=== PATIENT | male | born 1965 | race Caucasian/White ===

== ENCOUNTER 2018-08-18 23:45 | Inpatient (IN) | payer OTHER ==
--- NOTE | 2018-08-19 00:14 | CT ---
PRELIMINARY REPORT/[facility]/EMERGENTY AFTER-HOURS PROCEDURE CT Head Without Contrast EXAM DATE/TIME: 08/18/2018 11:51 PM CLINICAL HISTORY: 53 years old, male; Signs and symptoms; Weakness, extremity; Right; Patient HX: Lsn 1800. RT sided we akness. Vision loss. HTN TECHNIQUE: Axial computed tomography images of the head/brain without contrast. STROKE PROTOCOL was implemented. COMPARISON: No relevant prior studies available. FINDINGS: Brain: No intracrainal hemorrhage. No midline shift. Ill-defined hypodensity in the posterior inferio r right parietal lobe adjacent to the inferior right occipital horn. Ventricles: No ventriculomegaly. Bones/joints: Unremarkable. No acute fracture. Sinuses: Visualized sinuses are unremarkable. No acute sinusitis. Mastoid air cells: Visualized mastoid air cells are unremarkable. No mastoid effusion. Soft tissues: Unremarkable. IMPRESSION: No acute intracranial hemorrhage. Ill-defined area of hypodensity in the inferior right frontal lobe which is indeterminate. This does not have a typical appearance of acute ischemia. Further workup bas ed on clinical symptoms. ASSESSMENT: ASPECTS ([place] Stroke Program Early CT Score) is 10. CRITICAL RESULT: The study was discussed on the telephone with DOMINICK Spears on 08/19/2018 12:25 AM MACHINIST CLASS B. The results were understood and acknowledged. HEAD CT WITHOUT CONTRAST 08/18/18 HISTORY: Level I stroke. Last seen normal at 1800 hours. Right sided weakness. Vision loss. COMPARISON: None. FINDINGS: No parenchymal hemorrhage. No extra-axial hematoma. No midline shift. Basilar cisterns are patent. Brain volume, age appropriate. Cortical mccormack-white matter differentiatio n is preserved. Ventricles and sulci are patent and symmetric. Hypoattenuation involving the anterior right centrum semiovale likely due to remote lacunar infarct o f the white matter. There is subtle hyperdensity involving the terminus of the left internal carotid artery and proximal left M1 segment. Similar, the left hyperdense attenuation may be present in the right M1 segment and the visualized basilar artery. Given patient's symptomatology, CT angiogram is recommended. Calvariu m is intact. Adequate aeration of the sinuses and mastoid air cells. IMPRESSION: 1. No acute intracranial process. 2. Questionable thrombus with hyperdensity in the left M1 segment and left internal carotid raudel ry terminus. CT angiogram of the head and neck are recommended. Results of the study discussed with Dr. Escalera 08/18/18 at 11:57 p.m. Code CR POS: TOSIN
[2018-08-19 00:24] LABS: #Basophils 0.1 thou/uL (0.0-0.2); #Eosinphils 0.1 thou/uL (0.0-0.7); #Lymphocytes 1.4 thou/uL (1.20-3.40); #Monocytes 0.6 thou/uL (0.11-0.59); #Neutrophils 3.8 thou/uL (1.40-6.50); %Lymphocytes 23.5 % (21.0-51.0); %Monocytes 9.5 % (0.0-10.0); %Neutrophils 64.1 % (42.0-75.0); Hemoglobin 14.8 g/dL (14.0-18.0); Mean Corpuscular HGB CONC 33.5 g/dL (32.0-36.0); Mean Corpuscular Hemoglobin 32.5 pg (27.0-31.0); Mean Corpuscular Volume 96.9 fL (78.0-98.0); Platelet Count 183 thou/uL (130-400); RBC Distribution Width 12.6 % (11.5-14.5); Red Blood Cell (RBC) Count 4.55 mill/uL (4.70-6.10); White Blood Cell (WBC) Count 5.9 thou/uL (4.8-10.8)
[2018-08-19 00:45] LABS: ALT (SGPT) 19 U/L (8-55); AST (SGOT) 22 U/L (5-34); Alkaline Phosphatase 70 U/L (40-150); Anion Gap 14 mmol/L (10-20); BUN (Urea Nitrogen) 17 mg/dL (8.4-25.7); Bilirubin, Total 0.4 mg/dL (0.2-1.2); Calc. Creatinine Clearance 0 mL/min (70-130); Calcium 9.2 mg/dL (7.8-10.44); Carbon Dioxide 25 mmol/L (22-29); Chloride 101 mmol/L (98-107); Estimated GFR-MDRD 56; Globulin 3.6 g/dL (2.4-3.5); Glucose 137 mg/dL (70-105); Potassium 4.2 mmol/L (3.5-5.1); Protein, Total 7.6 g/dL (6.0-8.3); Sodium 136 mmol/L (136-145)
[2018-08-19 01:40] LABS: INR-International Normal Ratio 1.2; PTT 28.8 SEC (22.9-36.1); Prothrombin Time 15.4 SEC (12.0-14.7)
[2018-08-19 03:57] LABS: Troponin I 0.046 ng/mL (< 0.028)
[2018-08-19 04:30] VITALS: BMI 43.3
[2018-08-19] MEDS ORDERED: Acetaminophen 325 MG TAB PO PRN (04:42)
[2018-08-19] MEDS ORDERED: Ondansetron PF 4 MG/2 ML Vial IVP PRN ×2 (04:42→07:09)
[2018-08-19] MEDS ORDERED: Ondansetron ODT 4 MG TAB SL PRN (04:42)
[2018-08-19 06:49] LABS: Troponin I 0.057 ng/mL (< 0.028)
[2018-08-19] MEDS ORDERED: Cepastat Lozenges 1 LOZ PO PRN (07:09)
[2018-08-19] MEDS ORDERED: Loperamide HCl 2 MG CAP PO PRN (07:09)
[2018-08-19] MEDS ORDERED: Artificial Tears 18 DROP/0.9 ML EA EYE PRN (07:09)
[2018-08-19] MEDS ORDERED: Sodium Chloride 0.65% Nasal 44 ML BOT EA NARE PRN (07:09)
[2018-08-19] MEDS ORDERED: Eucerin (Mineral Oil/Petrolatum,White) 30 gm Jar TOP PRN (07:09)
[2018-08-19] MEDS ORDERED: Calcium Carbonate 500 MG ChewTAB PO PRN (07:09)
[2018-08-19] MEDS ORDERED: Nitroglycerin 0.4 MG TAB (25 Tab Bottle) SL PRN (07:09)
[2018-08-19] MEDS ORDERED: Senokot S 8.6-50 MG TAB PO PRN (07:09)
[2018-08-19] MEDS ORDERED: Bisacodyl 10 MG SUPP PR PRN (07:09)
[2018-08-19] MEDS ORDERED: hydrALAZINE 20 MG/ML VIAL SLOW IVP PRN (07:09)
[2018-08-19] MEDS ORDERED: Labetalol HCl 100 MG/20 ML VIAL SLOW IVP PRN (07:09)
[2018-08-19] MEDS ORDERED: Bisacodyl 5 MG TAB PO PRN (07:09)
[2018-08-19] MEDS ORDERED: Ondansetron ODT 4 MG TAB PO PRN (07:09)
[2018-08-19] MEDS ORDERED: Zolpidem Tartrate 5 MG TAB PO PRN (07:09)
[2018-08-19] MEDS ORDERED: Diabetic Tussin 200 MG/10 ML UDCUP PO PRN (07:09)
--- NOTE | 2018-08-19 08:04 | CT ---
PRELIMINARY REPORT/[facility]/EMERGENTY AFTER-HOURS PROCEDURE CT Angiography Head Without And With Contrast EXAM DATE/TIME: 08/19/2018 1:33 AM CLINICAL HISTORY: 53 years old, male; Signs and symptoms; Numbness and visual disturbance; Type not specified; Patient HX: M53 presents to ed via ems from [facility] unit with C/O r sided weakness onset 1800 associated with visual field disturbance on r side which PT describes as more blurry than normal as well as and chest pain. Per ems, PT ekg en route showed afib. Ems denies any facial droop or slurred speech. TECHNIQUE: Axial computed tomographic angiography images of the head without and with intravenous contrast using CT angiography protocol. MIP reconstructed images were created and reviewed. STROKE PROTOCOL was imp lemented. COMPARISON: CT Brain WO Con 08/18/2018 11:51 PM FINDINGS: Right internal carotid artery: Unremarkable. Intracranial segment is patent with no significant steno sis. No aneurysm. Right anterior cerebral artery: Unremarkable. No occlusion or significant stenosis. No aneurysm. Right middle cerebral artery: Unremarkable. No occlusion or significant stenosis. No aneurysm. Right posterior cerebral artery: Unremarkable. No occlusion or significant stenosis. No aneurysm. Right vertebral artery: Unremarkable. No occlusion or significant stenosis. No aneurysm. Left internal carotid artery: Unremarkable. Intracranial segment is patent with no significant stenos is. No aneurysm. Left anterior cerebral artery: Unremarkable. No occlusion or significant stenosis. No aneurysm. Left middle cerebral artery: Unremarkable. No occlusion or significant stenosis. No aneurysm. Left posterior cerebral artery: Unremarkable. No occlusion or significant stenosis. No aneurysm. Left vertebral artery: Unremarkable. No occlusion or significant stenosis. No aneurysm. Basilar artery: Unremarkable. No occlusion or significant stenosis. No aneurysm. HEAD: Brain: Unremarkable. No hemorrhage. No significant white matter disease. No edema. Ventricles: Normal. No ventriculomegaly. Bones/joints: Unremarkable. No acute fracture. Sinuses: Visualized sinuses are normal. No fluid levels. Mastoid air cells: Visualized mastoids are normal. No mastoid effusion. Soft tissues: Unremarkable. IMPRESSION: No acute findings. ASSESSMENT: ASPECTS ([place] Stroke Program Early CT Score) is 10. CT Angiography Neck With Contrast EXAM DATE/TIME: 08/19/2018 1:33 AM CLINICAL HISTORY: 53 years old, male; Signs and symptoms; Numbness and visual disturbance; Type not specified; Patient HX: M53 presents to ed via ems from [facility] unit with C/O r sided weakness onset 1800 associated with visual field disturbance on r side which PT describes as more blurry than normal as well as and chest pain. Per ems, PT ekg en route showed afib. Ems denies any facial droop or slurred speech. TECHNIQUE: Axial computed tomographic angiography images of the neck with intravenous contrast using CT angiogra phy protocol. MIP reconstructed images were created and reviewed. COMPARISON: CT Brain WO Con 08/18/2018 11:51 PM FINDINGS: VASCULATURE: Right common carotid artery: Normal. No significant stenosis. No dissection or occlusion. Right internal carotid artery: Normal. Extracranial segment is patent with no significant stenosis. No dissection or occlusion. Right external carotid artery: Normal. No occlusion or significant stenosis. Right vertebral artery: Normal. No significant stenosis. No dissection or occlusion. Left common carotid artery: Normal. No significant stenosis. No dissection or occlusion. Left internal carotid artery: Normal. Extracranial segment is patent with no significant stenosis. No dissection or occlusion. Left external carotid artery: Normal. No occlusion or significant stenosis. Left vertebral artery: Normal. No significant stenosis. No dissection or occlusion. Bovine aortic arc h NECK: Bones/joints: No acute fracture. Soft tissues: Normal. No significant soft tissue swelling. IMPRESSION: No acute findings. COMMENT: Reference per NASCET criteria for degree of stenosis: Mild: less than 50% stenosis. Moderate: 50-69% stenosis. Severe: 70-94% stenosis. Near occlusion: 95-99% stenosis. Thank you for allowing us to participate in the care of your patient. Dictated and Authenticated by: Michael Pike MD 08/19/2018 1:59 AM Central Time ([place] & [place]) FINAL REPORT CT ANGIOGRAM HEAD WITH CONTRAST CT ANGIOGRAM NECK WITH CONTRAST: History: Stroke alert. Right sided weakness with vision loss. Comparison: CT brain prior day. FINDINGS: CTA of the head and neck was performed after the intravenous administration of contrast. 3D rendering provided. The findings and impression and concordant with the preliminary report. Code QA. Finding on the CT brain examination likely due to increased hematocrit level and/or dehydration. POS: CET
--- NOTE | 2018-08-19 08:17 | RAD ---
CHEST ONE VIEW: History: Chest pain Comparison: None. FINDINGS: Heart size is enlarged. Mild pulmonary venous congestion. No pneumothorax. Large effusion. No acute o sseous abnormality. IMPRESSION: Cardiomegaly and mild pulmonary venous congestion. POS: CET
[2018-08-19] MEDS: Famotidine 20 MG TAB PO SCH ×2 (09:04→20:24)
[2018-08-19] MEDS: Aspirin 325 mg Enteric Coated Tablet PO SCH (09:04)
[2018-08-19] MEDS ORDERED: Aspirin 325 MG TAB ONE (09:08)
[2018-08-19] MEDS ORDERED: Dextrose 50% Abboject 50 ML SYRINGE SLOW IVP PRN (11:21)
[2018-08-19] MEDS ORDERED: Dextrose 5% in Water 1,000 ML IV PRN (11:21)
--- NOTE | 2018-08-19 11:31 | MRI ---
NONCONTRAST ENHANCED MRI IMAGES OF THE BRAIN: FINDINGS: There are tiny areas of diffusion restriction in the right deep white matter of the frontal lobe comp atible with tiny right frontal lobe areas of acute infarction. There is a much larger left posterior cerebral distribution area of stroke involving medial anterior aspect of the left occipital lobe, extending posteriorly into the left occipital lobe. This is compat ible with a large left posterior cerebral distribution area of stroke. Old area of right temporal occipital stroke is also present. IMPRESSION: Acute left medial occipital lobe area of stroke extending into the posterior left temporal lobe. POS: TOSIN
--- NOTE | 2018-08-19 11:58 | HP ---
PRIMARY CARE PHYSICIAN: The patient is from care home. REASON FOR ADMISSION: CVA. HISTORY OF PRESENT ILLNESS: This is a 53-year-old male, who lives in care home, who has underlying history of paroxysmal atrial fibrillation as well as a history of bioprosthetic aortic valve replacement, who presented from detention because he was experiencing motor weakness and sensory deficit on the right upper and lower extremity. Symptoms started yesterday around 4 p.m. the patient was in bathroom for urination, and at that point, he noticed that his right side of the body was feeling numb and he experienced tingling and numbness, and that is why he went to [facility], where they checked his blood pressure and it was high. He was given blood pressure medicine and he was advised to go back to his room. The patient was having difficulty walking and he was feeling more numb on the right upper and lower extremity and that is why igniter capper was called and the patient was brought to emergency room for evaluation. As per paramedics, EKG showed atrial fibrillation with PVC. The patient was experiencing right upper and lower extremity weakness and he was dragging whenever he was trying to walk. He denied any chest pain, palpitation, or dizziness to me. He denies any orthopnea, PND, or leg swelling. He denies any headache or speech problem. He denied any constipation, diarrhea, melena, or hematochezia. Upon arrival in the emergency room, the patient was having right-sided drift. Stroke alert was initiated, and CT brain came back negative. Subsequently, CT hoopa of [place] was done, which also did not show any acute occlusion. This morning when I saw this patient, at that time he was feeling much better. His symptoms in the lower extremity had significantly improved, but he still feels a little bit of paresthesia on the upper extremity. REVIEW OF SYSTEMS: CONSTITUTIONAL: Negative for weight loss or gain, ability to conduct usual activities. SKIN: Negative for rash, itching. EYES: Negative for double vision, pain. ENT/MOUTH: Negative for nose bleeding, neck stiffness, pain, tenderness. CARDIOVASCULAR: Negative for palpitations, dyspnea on exertion, orthopnea. RESPIRATORY: Negative for shortness of breath, wheezing, cough, hemoptysis, fever or night sweats. GASTROINTESTINAL: Negative for poor appetite, abdominal pain, heartburn, nausea, vomiting, constipation, or diarrhea. GENITOURINARY: Negative for urgency, frequency, dysuria, nocturia. MUSCULOSKELETAL: Negative for pain, swelling. NEUROLOGIC/PSYCHIATRIC: Negative for anxiety, depression. ALLERGY/IMMUNOLOGIC: Negative for skin rash, bleeding tendency. Please see my HPI for pertinent positives and negatives. All other review of systems reviewed and negative except as mentioned in the HPI. PAST MEDICAL HISTORY: Coronary artery disease; diabetes, type 2; gastroesophageal reflux disease; dyslipidemia; morbid obesity; and paroxysmal atrial fibrillation, chronic anticoagulation. PAST SURGICAL HISTORY: Bovine aortic arch and aortic valve replacement. PAST PSYCHIATRIC HISTORY: Reviewed and negative. SOCIAL HISTORY: The patient is from care home. No history of tobacco, alcohol, or illicit drug abuse. FAMILY HISTORY: No family history of coronary artery disease, stroke, or cancer. ALLERGIES: FLEXERIL, HYDROCODONE, AND LISINOPRIL. CURRENT HOME MEDICATIONS: 1. Aspirin 81 mg daily. 2. Lipitor 40 mg at bedtime. 3. Carbamazepine 200 mg p.o. at bedtime. 4. Cardizem CD 180 mg twice daily. 5. Lasix 40 mg daily. 6. Imdur 60 mg daily. 7. Novolin as per sliding scale. 8. Omeprazole 20 mg p.o. daily. 9. Warfarin 2.5 mg 3 tablets on Wednesday; 4 tablets on Wednesday, Wednesday, , Wednesday, and Wednesday; and 2 tablets on Wednesday. EMERGENCY ROOM COURSE: The patient has received aspirin. PHYSICAL EXAMINATION: VITAL SIGNS: On arrival, blood pressure 183/104, pulse 57, respiratory rate 18, temperature 99.1, and saturation 98% on room air. Weight 149 kg. GENERAL: The patient is currently alert and awake. No obvious acute distress. HEENT: Head; normocephalic and atraumatic. Eyes; pupils round, reactive to light. Extraocular muscle intact. ENT, oropharynx within normal limits. Moist mucous membranes. No oral lesion. No pharyngeal erythema. No exudate. NECK: Supple. No JVD. No thyromegaly. No carotid bruit. LUNGS: Clear to auscultation without any rhonchi or rales. CARDIAC: S1 and S2 regular. No murmur. No gallop. No rub. ABDOMEN: Soft. Obesity present. Bowel sounds present. Nontender. Nondistended. No organomegaly. No mass. No suprapubic tenderness. BACK: Unremarkable. No CVA tenderness. EXTREMITIES: Upper extremities; passive movement of all joints are normal. Lower extremities; passive movement of all joints are normal. NEUROLOGIC: The patient is alert and oriented x3. Cranial nerves nerve 2 through 12 intact. Motor 4/5 in right upper and lower extremity. Sensation subjectively reduced on right upper and lower extremity. Plantar bilateral flexor. No cerebellar sign. DIAGNOSTIC STUDIES: Significant labs; EKG showing sinus bradycardia, incomplete left bundle-branch block pattern. CBC; WBC 5.9, hemoglobin 14.8, and platelets 183. INR 1.2. Sodium 136, potassium 4.2, chloride 101, carbon dioxide 25, BUN 17, creatinine 1.34, glucose 137, and calcium 9.2. LFT; AST 22, ALT 19, alkaline phosphatase 70, and albumin 4.0. Troponin 0.052, 0.046, and 0.057. CT [place] of [place] negative for any acute blood clot. Chest x-ray negative for any acute cardiopulmonary process. CT brain negative for any acute process. ASSESSMENT AND PLAN: 1. Acute cerebrovascular accident versus transient ischemic attack. The patient's symptomatology is consistent with right-sided sensory paresthesia in both upper and lower extremity and consistent with left middle cerebral artery territory infarct. Currently, CT brain is negative. We are going to obtain MRI of brain to see any finding. We will obtain the echocardiography as a part of stroke workup. We will check lipid profile for risk stratification. Meanwhile, we will continue with aspirin 325 mg p.o. daily and Lipitor 40 mg p.o. at bedtime. We will control his blood pressure with his home medication and titrate medication on as needed basis. 2. Paroxysmal atrial fibrillation. The patient is already on chronic anticoagulation. We will monitor PT/INR on a daily basis, and we will continue the patient's warfarin as per home dosage. The patient's rate is under control. We will continue with Cardizem CD 180 mg twice daily and we will monitor on telemetry floor. We will obtain echocardiography. 3. Dyslipidemia. Check lipid profile and continue Lipitor 40 mg p.o. at bedtime. 4. Diabetes, type 2. We will continue insulin as per sliding scale protocol. Diabetic diet will be given. 5. Hypertension. We will continue Cardizem CD 180 mg twice daily along with Imdur 60 mg daily. 6. Gastroesophageal reflux disease. We will continue Pepcid 20 mg p.o. b.i.d. 7. Demand ischemia. The patient's troponin is slightly elevated. We will monitor on telemetry floor. Echocardiography will be obtained. 8. Deep venous thrombosis prophylaxis. The patient is already on warfarin therapy. 9. GI prophylaxis. Pepcid 20 mg p.o. b.i.d. CODE STATUS: The patient is a full code. The patient does not have any surrogate decision maker. DISPOSITION PLAN: Based on clinical course, we are expecting the patient's stay in the hospital more than 2 midnights. Plan of care discussed with the patient in detail. Job ID: [id number]
[2018-08-19] MEDS: HumaLOG 300 UNITS/3 ML VIAL SC PRN ×2 (17:46→21:31)
--- NOTE | 2018-08-19 19:34 | ULT ---
DOPPLER VENOUS ULTRASOUND OF THE RIGHT AND LEFT LOWER EXTREMITY: 08/19/18 INDICATION: Concern for possible embolic stroke. TECHNIQUE: Ribeiro scale, color doppler and vascular duplex with spectral analysis was performed of the deep venous structures of both lower extremity. Common femoral vein, superficial femoral vein, popliteal vein, p osterior tibial vein, proximal greater saphenous and profunda veins were assessed. FINDINGS: Normal compression, flow, and augmentation seen within the deep venous structures of both lower extre mity. IMPRESSION: No evidence of DVT within both lower extremities. POS: BENJAMIN
[2018-08-19] MEDS: Atorvastatin Calcium 40 MG TAB PO SCH (20:35)
--- NOTE | 2018-08-20 00:11 | CON ---
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 Yesterday, he was using a commode in the bathroom, and he felt sudden onset right-sided numbness and weakness. He had to have help with moving and then he called his mother and he was brought to the emergency room subsequently by the [place] [facility] authorities. The patient has previous history of hypertension, diabetes , and cardiac risk factors. He is on Coumadin, but his INR was 1.2. The patient never had a previous stroke. PREVIOUS MEDICAL HISTORY: Hypertension, diabetes, coronary artery bypass graft with aortic valve replacement, and repair of bovine aortic arch. CURRENT MEDICATIONS: Include: 1. Aspirin. 2. Atorvastatin. 3. He is also on insulin sliding scale at the hospital. 4. He takes Imdur and labetalol as needed, and loratadine. PAST SURGICAL HISTORY: As noted. FAMILY HISTORY: His father had cancer. Mother is alive. There is no history of CVA in the family. REVIEW OF SYSTEMS: PULMONARY: Negative for shortness of breath or cough. CARDIOVASCULAR: No chest pain or palpitations. GASTROINTESTINAL: No history of diarrhea or vomiting. DERMATOLOGIC: Negative for any skin lesions or rash. OPHTHALMOLOGIC: Positive for some visual disturbance. NEUROLOGICAL: Positive for weakness and numbness. LABORATORY DATA: Current workup is white count 5.9, hemoglobin 14.8, hematocrit 44.1, platelet count 183. PT 15.4, INR 1.2, PTT 28.8. Chemistry, sodium 136, potassium 4.2, chloride 101, bicarb 25, BUN 17, creatinine 1.34, glucose 137, troponin I 0.057. IMAGING: MRI of the brain showed acute infarct in the left medial occipital lobe extending into the posterior left temporal lobe. CT angiography was reviewed, he has no acute findings, no occlusion of the carotids or intracranial vasculature or vertebrals or INSTRUCTIONAL MANAGER. PHYSICAL EXAMINATION: VITAL SIGNS: Blood pressure 191/103, temperature 98.2, pulse 68, respiratory rate 20, O2 sats 98%. GENERAL APPEARANCE: Well-built, well-nourished man, who was in shackles, so there were some limitations to parts of our examination. CHEST: Clear vesicular breathing. CARDIOVASCULAR: He had a mechanical valve click. NEUROLOGICAL: He had mild confusion about the date and time, but is oriented to place and person. Cranial nerves 2 through 12, he had visual field cut with homonymous hemianopsia to the right side. Normal sensation of face bilaterally. No facial asymmetry noted. Normal hearing bilaterally to finger rub. Tongue midline. No atrophy noted. Normal aeration of palate. Motor, bulk normal, tone normal, strength 5/5 on the left side, on the right side his strength was 4+/5. In the upper and lower extremities, muscle groups tested in iliopsoas, hamstrings, quadriceps, ankle dorsiflexion, plantar flexion, deltoid, biceps, triceps, wrist extension and flexion, and finger extension and flexion. Deep tendon reflexes are 2+ throughout in upper and lower extremities. Sensory, he has numbness of the right face and right upper and lower extremities to touch. Cerebellar difficult to assess due to shackles. IMPRESSION: The patient is a 53-year-old man with prosthetic aortic valve with mechanical valve click. His INR was at 1.2. He is on Coumadin at the facility. His examination shows mild right-sided weakness with numbness on the right side along with right homonymous anopsia consistent with the left occipital area stroke. Luckily, he does not have any stenotic vasculature. This is most likely a cardioembolic event. TREATMENT RECOMMENDATIONS: Please consult Cardiology and consider optimal doses of coumadin to approach therapeutic range for his mechanical prosthetic valve. I will also request bilateral Dopplers for his legs to see if we can identify any thrombosis in his legs. Please complete workup with echocardiogram. I will follow up the patient tomorrow. Job ID: [id number] [facility]
[2018-08-20 05:28] LABS: #Eosinphils 0.1 thou/uL (0.0-0.7); #Lymphocytes 1.1 thou/uL (1.20-3.40); #Monocytes 0.5 thou/uL (0.11-0.59); #Neutrophils 3.1 thou/uL (1.40-6.50); %Basophils 0.7 % (0.0-1.0); %Eosinophils 3.1 % (0.0-10.0); %Lymphocytes 22.9 % (21.0-51.0); %Monocytes 9.8 % (0.0-10.0); %Neutrophils 63.6 % (42.0-75.0); Mean Corpuscular Hemoglobin 31.7 pg (27.0-31.0); Platelet Count 161 thou/uL (130-400); RBC Distribution Width 12.4 % (11.5-14.5); Red Blood Cell (RBC) Count 4.43 mill/uL (4.70-6.10); White Blood Cell (WBC) Count 4.9 thou/uL (4.8-10.8)
[2018-08-20 05:33] LABS: INR-International Normal Ratio 1.1; Prothrombin Time 14.2 SEC (12.0-14.7)
[2018-08-20 05:50] LABS: Anion Gap 12 mmol/L (10-20); BUN (Urea Nitrogen) 14 mg/dL (8.4-25.7); Calc. Creatinine Clearance 190 mL/min (70-130); Calcium 9.3 mg/dL (7.8-10.44); Carbon Dioxide 25 mmol/L (22-29); Cardiac Risk 6.2 (Less than 4.5); Chloride 101 mmol/L (98-107); Cholesterol 160 mg/dl (< 200 Desired); Estimated GFR-MDRD 82; Glucose 160 mg/dL (70-105); HDL Cholesterol 26 mg/dL (>60 Neg Risk); LDL Cholesterol, Calculated 90 mg/dL; Potassium 4.3 mmol/L (3.5-5.1); Sodium 134 mmol/L (136-145); Triglycerides 219 mg/dL (Less than 150)
--- NOTE | 2018-08-20 09:54 | PDOC.PN ---
- Subjective Encounter Start Date: 08/20/18 Encounter Start Time: 07:30 -: old records requested/rev Patient seen and examined. No new complaints. No overnight events pt still has right side parasthesia - Objective Resuscitation Status - Order Detail: 08/19/18 07:06 Resuscitation Status Routine Resuscitation Status: FULL: Full Resuscitation MAR Reviewed: Yes Vital Signs & Weight: Vital Signs (12 hours) Temp Pulse Resp BP BP Pulse Ox 08/20/18 07:37 99.2 F 59 L 16 175/84 H 93 L 08/20/18 03:27 97.7 F 64 18 171/91 H 94 L 08/20/18 00:49 155/67 H 08/19/18 23:33 97.8 F 61 12 94 L Weight Weight 328 lb 11.347 oz I&O: 08/19/18 08/20/18 08/21/18 06:59 06:59 07:59 Intake Total 240 500 Output Total 700 2120 Balance -460 -1620 Result Diagrams: 08/20/18 04:45 08/20/18 04:45 Additional Labs: Accuchecks 08/20/18 08/19/18 08/19/18 05:22 20:50 17:08 POC Glucose 148 H 240 H 209 H Radiology Reviewed by me: Yes (MRI report noted) EKG Reviewed by me: Yes Phys Exam - Physical Examination Constitutional: NAD HEENT: PERRLA, moist MMs, sclera anicteric Neck: no JVD, supple Respiratory: no wheezing, no rales, no rhonchi Cardiovascular: RRR, no significant murmur, no rub Gastrointestinal: soft, non-tender, no distention, positive bowel sounds Musculoskeletal: no edema, pulses present right side parasthesia and mild weakness Psychiatric: normal affect, A&O x 3 Skin: no rash, normal turgor Dx/Plan (1) 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 Code(s): I63.532 - CEREB INFRC D/T UNSP OCCLS OR STENOS OF LEFT POST CEREB ART Status: Acute (2) Demand ischemia Code(s): I24.8 - OTHER FORMS OF ACUTE ISCHEMIC HEART DISEASE Status: Acute (3) Chronic anticoagulation Code(s): Z79.01 - [facility] (CURRENT) USE OF ANTICOAGULANTS Status: Chronic (4) Dyslipidemia Code(s): E78.5 - HYPERLIPIDEMIA, UNSPECIFIED Status: Chronic (5) Hypertension Code(s): I10 - ESSENTIAL (PRIMARY) HYPERTENSION Status: Chronic (6) Morbid obesity with BMI of 40.0-44.9, adult Code(s): E66.01 - MORBID (SEVERE) OBESITY DUE TO EXCESS CALORIES; Z68.41 - BODY MASS INDEX (BMI) 40.0-44.9, ADULT Status: Chronic (7) PAF (paroxysmal atrial fibrillation) Code(s): I48.0 - PAROXYSMAL ATRIAL FIBRILLATION Status: Chronic (8) H/O aortic valve replacement Code(s): Z95.2 - PRESENCE OF PROSTHETIC HEART VALVE Status: Chronic - Plan cont current plan of care, PT/OT, social service assistant * will ask neurology to decide if pt needs lovenox to bridge for subtherapeutic INR in view of stroke * cardiology will be consulted per neurology request * today echo * home meds reconciled * medication reviewed as below * symptomatic treatment * stroke team evaluation. Review of Systems - Review of Systems ENT: negative: Ear Pain, Ear Discharge, Nose Pain, Nose Discharge, Nose Congestion, Mouth Pain, Mouth Swelling, Throat Pain, Throat Swelling, Other Respiratory: negative: Cough, Dry, Shortness of Breath, Hemoptysis, SOB with Excertion, Pleuritic Pain, Sputum, Wheezing Cardiovascular: negative: chest pain, palpitations, orthopnea, paroxysmal nocturnal dyspnea, edema, light headedness, other Gastrointestinal: negative: Nausea, Vomiting, Abdominal Pain, Diarrhea, Constipation, Melena, Hematochezia, Other Genitourinary: negative: Dysuria, Frequency, Incontinence, Hematuria, Retention , Other Musculoskeletal: negative: Neck Pain, Shoulder Pain, Arm Pain, Back Pain, Hand Pain, Leg Pain, Foot Pain, Other Skin: negative: Rash, Lesions, Andreas, Bruising, Other Neurological: Numbness. negative: Weakness, Incoordination, Change in Speech, Confusion, Seizures, Other - Medications/Allergies Allergies/Adverse Reactions: Allergies Allergy/AdvReac Type Severity Reaction Status Date / Time atorvastatin [From Lipitor] Allergy Verified 08/19/18 04:41 cyclobenzaprine Allergy Verified 08/19/18 04:41 [From Flexeril] hydrocodone Allergy Verified 08/19/18 04:41 lisinopril Allergy Verified 08/19/18 04:41 Medications: Current Medications Acetaminophen (Tylenol) 650 mg PO Q4H PRN PRN Reason: Headache/Fever/Mild Pain (1-3) Artificial Tears (Tears Naturale) 2 drop EA EYE PRN PRN PRN Reason: Dry Eyes Aspirin (Ecotrin) 325 mg PO DAILY [facility] Last Admin: 08/19/18 09:04 Dose: 325 mg Atorvastatin Calcium (Lipitor) 40 mg PO HS [facility] Last Admin: 08/19/18 20:35 Dose: Not Given Bisacodyl (Dulcolax) 10 mg PO DAILYPRN PRN PRN Reason: Constipation Bisacodyl (Dulcolax) 10 mg [place] DAILYPRN PRN PRN Reason: Constipation Calcium Carbonate (Tums) 1,000 mg PO Q4H PRN PRN Reason: Heartburn or Indigestion Carbamazepine (Tegretol) 200 mg PO HS [facility] Dextrose/Water (Dextrose 50%) 25 gm SLOW IVP PRN PRN PRN Reason: Hypoglycemia Diltiazem HCl (Cardizem Cd) 180 mg PO BID [facility] Famotidine (Pepcid) 20 mg PO BID [facility] Last Admin: 08/19/18 20:24 Dose: 20 mg Furosemide (Lasix) 40 mg PO DAILY [facility] Glucagon (Glucagon) 1 mg IM PRN PRN PRN Reason: Hypoglycemia Guaifenesin (Robitussin Sf) 200 mg PO Q4H PRN PRN Reason: Cough Hydralazine HCl (Apresoline) 10 mg SLOW IVP Q4H PRN PRN Reason: SBP > 180 and HR < 70 Dextrose/Water (D5w) 1,000 mls @ 0 mls/hr IV .Q0M PRN PRN Reason: Hypoglycemia Insulin Human Lispro (Humalog) 0 units SC .MODERATE SLIDING SC PRN PRN Reason: Moderate Correctional Scale Last Admin: 08/19/18 17:46 Dose: 4 unit Insulin Human Lispro (Humalog) 0 units SC .BEDTIME SLIDING SC PRN PRN Reason: Bedtime Correctional Scale Last Admin: 08/19/18 21:31 Dose: 2 unit Insulin Human NPH (Humulin N) 30 unit SC QAM [facility] Isosorbide Mononitrate (Imdur) 60 mg PO DAILY [facility] Labetalol HCl (Normodyne) 20 mg SLOW IVP Q4H PRN PRN Reason: SBP > 180 and HR >/= 70 Loperamide HCl (Imodium) 2 mg PO PRN PRN PRN Reason: Diarrhea/Loose Stools Loratadine (Claritin) 10 mg PO DAILYPRN PRN PRN Reason: Sinus Symptoms Mineral Oil/White Petrolatum (Eucerin Cream) 0 gm TOP BIDPRN PRN PRN Reason: Dry Skin Miscellaneous Medication (Pharmacy To Dose) 1 each PO DAILYPRN PRN PRN Reason: LABS Nitroglycerin (Nitrostat) 0.4 mg SL Q5MIN PRN PRN Reason: Chest Pain Ondansetron HCl (Zofran Odt) 4 mg PO Q6H PRN PRN Reason: Nausea/Vomiting Ondansetron HCl (Zofran) 4 mg IVP Q6H PRN PRN Reason: Nausea/Vomiting Senna/Docusate Sodium (Senokot S) 2 tab PO BID PRN PRN Reason: Constipation Sodium Chloride ([place] Nasal [place] 0.65%) 0 ml EA NARE QIDPRN PRN PRN Reason: Nasal Congestion Sodium Chloride (Flush - Normal Saline) 10 ml IVF Q12HR [facility] Last Admin: 08/19/18 21:31 Dose: 10 ml Sodium Chloride (Flush - Normal Saline) 10 ml IVF PRN PRN PRN Reason: Saline Flush Throat Lozenges (Cepastat Lozenges) 1 aditya PO Q2H PRN PRN Reason: Sore Throat Warfarin Sodium (Coumadin) 7.5 mg PO Mo HANY Warfarin Sodium (Coumadin) 10 mg PO TUTHSASU HANY Warfarin Sodium (Coumadin) 10 mg PO We HANY Warfarin Sodium (Coumadin) 5 mg PO Fr [facility] Zolpidem Tartrate (Ambien) 5 mg PO HSPRN PRN PRN Reason: Insomnia
[2018-08-20] MEDS: Aspirin 325 mg Enteric Coated Tablet PO SCH (09:57)
[2018-08-20] MEDS: Famotidine 20 MG TAB PO SCH ×2 (09:57→20:12)
[2018-08-20] MEDS: Furosemide 40 MG TAB PO SCH (10:00)
[2018-08-20] MEDS: NPH, Human Insulin Isophane 300 UNIT/3 ML VIAL SC SCH (11:24)
[2018-08-20] MEDS: HumaLOG 300 UNITS/3 ML VIAL SC PRN ×3 (11:25→21:25)
--- NOTE | 2018-08-20 13:09 | PRG ---
DATE OF SERVICE: 08/20/2018 CHIEF COMPLAINT: Weakness and numbness on the right side. INTERVAL HISTORY: The patient reports he is still having difficulty with his vision on the right side. No change in his symptoms including right-sided numbness. He walked with the physical therapist and was able to walk somewhat with a walker. WORKUP: His brain MRI showed left occipital and temporal area stroke. His ultrasound of his lower extremities was negative. Cardiac echo was completed and it is pending report. OBJECTIVE: VITAL SIGNS: Today, temperature 99, pulse is 61, respiratory rate 20, and blood pressure 110/55. GENERAL APPEARANCE: The patient is still in shackles. Higher intellectual functions. Normal orientation to time, place, and person. Cranial nerves; normal extraocular movements. He has right homonymous hemianopsia. No facial asymmetry noted. Motor bulk normal. Tone normal. Strength is 4/5 on the right side and left side strength is 5/5. He still has persistent numbness of the right side. IMPRESSION: The patient with mechanical cardiac valve and subtherapeutic INR of 1.2 yesterday and 1.1 today. He is at high risk for cardioembolic events. He is pending Cardiology consult. RECOMMENDATIONS: Target INR for this patient would be 2.5 to 3.5. I agree with the plans for bridging with Lovenox. For now, bridge with Lovenox and continue with Coumadin until then consult Cardiology regarding anticoagulation and review of his echocardiogram. I will follow up tomorrow again. Job ID: [id number] MTDD
--- NOTE | 2018-08-20 13:50 | CON ---
DATE OF CONSULTATION: REASON FOR CONSULTATION: Recent stroke and subtherapeutic INR and history of mechanical aortic valve. HISTORY OF PRESENT ILLNESS: Mr. Abarca is a 53-year-old gentleman, who recently suffered a stroke. His history is somewhat difficult based on his recent CVA. He states he received his aortic valve and aortic arch in [place]. No current complaints. He states he had been therapeutic in the past. He recently became subtherapeutic. He states him being subtherapeutic was unknown to him. PAST MEDICAL HISTORY: Diabetes mellitus, hypertension, and CAD, status post bypass surgery and aortic valve replacement with aortic arch replacement. HOME MEDICATIONS: Include, 1. Atorvastatin. 2. Coumadin. 3. Aspirin. FAMILY HISTORY: Negative for CAD. REVIEW OF SYSTEMS: Ten point review of systems is reviewed as above, otherwise negative. PHYSICAL EXAMINATION: GENERAL: Patient is a pleasant male, who is in no acute distress. The patient appears their stated age. VITAL SIGNS: Blood pressure 110/55, pulse 61, and temperature 99. NEUROLOGIC: Mild right-sided upper and lower extremity weakness. HEENT: Sclerae without icterus. Mouth has moist mucous membranes with normal pallor. NECK: No JVD. Carotid upstroke brisk. No bruits bilaterally. LUNGS: Clear to auscultation with unlabored respirations. BACK: No scoliosis or kyphosis. CARDIAC: Normal aortic valve click. ABDOMEN: Soft, nontender, nondistended. No peritoneal signs present. No hepatosplenomegaly. No abnormal striae. EXTREMITIES: 2+ femoral and 2+ dorsalis pedis pulses. No cyanosis, clubbing, or edema. SKIN: No gross abnormalities. PERTINENT LABORATORY DATA: Prelim echo Doppler, technically difficult study. Overall, LVEF does appear at the lower limits of normal. Aortic valve appears to be opening properly. IMPRESSION: 1. Recent CVA. 2. Subtherapeutic INR. 3. Mechanical aortic valve. 4. Coronary artery disease. 5. Status post bypass surgery. RECOMMENDATIONS: Based on the most recent guidelines, given that Mr. Abarca has been subtherapeutic, the recommendation is to continue aspirin and increase his INR from 2 to 3. Would only overshoot 2.5 to 3.5 if he was therapeutic at the time of his CVA. We will cover with heparin or Lovenox until his INR is therapeutic. Otherwise from my standpoint, I have no further recommendations. Please re-consult if needed. Job ID: [id number]
[2018-08-20] MEDS ORDERED: Warfarin Sodium 10 MG TAB PO SCH (17:00)
[2018-08-20] MEDS: Atorvastatin Calcium 40 MG TAB PO SCH (20:11)
[2018-08-20] MEDS: carBAMazepine 200 MG TAB PO SCH (20:12)
[2018-08-20] MEDS: Enoxaparin Sodium 60 MG/0.6 ML SYRINGE SC SCH (20:12)
[2018-08-21] MEDS: HumaLOG 300 UNITS/3 ML VIAL SC PRN ×3 (05:43→18:18)
[2018-08-21 07:13] LABS: INR-International Normal Ratio 1.1; Prothrombin Time 13.8 SEC (12.0-14.7)
--- NOTE | 2018-08-21 09:39 | PDOC.PN ---
- Subjective Encounter Start Date: 08/21/18 Encounter Start Time: 07:30 Patient seen and examined. No new complaints. No overnight events pt still has right side numb feeling - Objective Resuscitation Status - Order Detail: 08/19/18 07:06 Resuscitation Status Routine Resuscitation Status: FULL: Full Resuscitation MAR Reviewed: Yes Vital Signs & Weight: Vital Signs (12 hours) Temp Pulse Resp BP Pulse Ox 08/21/18 08:00 97.5 F L 61 18 169/89 H 93 L 08/21/18 04:00 97.9 F 58 L 16 137/68 93 L 08/21/18 00:00 97.4 F L 56 L 16 151/67 H 94 L Weight Weight 328 lb 11.347 oz I&O: 08/20/18 08/21/18 08/22/18 05:59 06:59 06:59 Intake Total Output Total Balance Result Diagrams: 08/20/18 04:45 08/20/18 04:45 Additional Labs: Accuchecks 08/21/18 08/20/18 08/20/18 05:37 19:51 16:52 POC Glucose 194 H 305 H 170 H 08/20/18 10:42 POC Glucose 232 H Radiology Reviewed by me: Yes (echo report noted) EKG Reviewed by me: Yes (nsr) Phys Exam - Physical Examination Constitutional: NAD HEENT: PERRLA, moist MMs, sclera anicteric Neck: no JVD, supple Respiratory: no wheezing, no rales, no rhonchi Cardiovascular: RRR, no significant murmur, no rub prosthetic click+ Gastrointestinal: soft, non-tender, no distention, positive bowel sounds Musculoskeletal: no edema, pulses present Neurological: non-focal, moves all 4 limbs right side parasthesia Lymphatic: no nodes Psychiatric: normal affect, A&O x 3 Skin: no rash, normal turgor Dx/Plan (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9, adult Code(s): E66.01 - MORBID (SEVERE) OBESITY DUE TO EXCESS CALORIES; Z68.41 - BODY MASS INDEX (BMI) 40.0-44.9, ADULT Status: Chronic (8) PAF (paroxysmal atrial fibrillation) Code(s): I48.0 - PAROXYSMAL ATRIAL FIBRILLATION Status: Chronic (9) Subtherapeutic international normalized ratio (INR) Code(s): R79.1 - ABNORMAL COAGULATION PROFILE Status: Acute - Plan cont current plan of care, PT/OT * continue lovenox and warfarin until INR therapeutic * stroke team evaluation * medication reviewed as below * symptomatic treatment. Review of Systems - Review of Systems Eyes: negative: Pain, Vision Change, Conjunctivae Inflammation, Eyelid Inflammation, Redness, Other ENT: negative: Ear Pain, Ear Discharge, Nose Pain, Nose Discharge, Nose Congestion, Mouth Pain, Mouth Swelling, Throat Pain, Throat Swelling, Other Respiratory: negative: Cough, Dry, Shortness of Breath, Hemoptysis, SOB with Excertion, Pleuritic Pain, Sputum, Wheezing Cardiovascular: negative: chest pain, palpitations, orthopnea, paroxysmal nocturnal dyspnea, edema, light headedness, other Gastrointestinal: negative: Nausea, Vomiting, Abdominal Pain, Diarrhea, Constipation, Melena, Hematochezia, Other Genitourinary: negative: Dysuria, Frequency, Incontinence, Hematuria, Retention , Other Musculoskeletal: negative: Neck Pain, Shoulder Pain, Arm Pain, Back Pain, Hand Pain, Leg Pain, Foot Pain, Other Skin: negative: Rash, Lesions, Andreas, Bruising, Other Neurological: Numbness. negative: Weakness, Incoordination, Change in Speech, Confusion, Seizures, Other - Medications/Allergies Allergies/Adverse Reactions: Allergies Allergy/AdvReac Type Severity Reaction Status Date / Time atorvastatin [From Lipitor] Allergy Verified 08/19/18 04:41 cyclobenzaprine Allergy Verified 08/19/18 04:41 [From Flexeril] hydrocodone Allergy Verified 08/19/18 04:41 lisinopril Allergy Verified 08/19/18 04:41 Medications: Current Medications Acetaminophen (Tylenol) 650 mg PO Q4H PRN PRN Reason: Headache/Fever/Mild Pain (1-3) Artificial Tears (Tears Naturale) 2 drop EA EYE PRN PRN PRN Reason: Dry Eyes Aspirin (Ecotrin) 325 mg PO DAILY [facility] Last Admin: 08/20/18 09:57 Dose: 325 mg Atorvastatin Calcium (Lipitor) 40 mg PO [facility] Last Admin: 08/20/18 20:11 Dose: Not Given Bisacodyl (Dulcolax) 10 mg PO DAILYPRN PRN PRN Reason: Constipation Bisacodyl (Dulcolax) 10 mg [place] DAILYPRN PRN PRN Reason: Constipation Calcium Carbonate (Tums) 1,000 mg PO Q4H PRN PRN Reason: Heartburn or Indigestion Carbamazepine (Tegretol) 200 mg PO [facility] Last Admin: 08/20/18 20:12 Dose: 200 mg Dextrose/Water (Dextrose 50%) 25 gm SLOW IVP PRN PRN PRN Reason: Hypoglycemia Diltiazem HCl (Cardizem Cd) 180 mg PO BID [facility] Last Admin: 08/20/18 20:12 Dose: 180 mg Enoxaparin Sodium (Lovenox) 60 mg SC 0900,2100 [facility] Last Admin: 08/20/18 20:12 Dose: 60 mg Famotidine (Pepcid) 20 mg PO BID [facility] Last Admin: 08/20/18 20:12 Dose: 20 mg Furosemide (Lasix) 40 mg PO DAILY [facility] Last Admin: 08/20/18 10:00 Dose: 40 mg Glucagon (Glucagon) 1 mg IM PRN PRN PRN Reason: Hypoglycemia Guaifenesin (Robitussin Sf) 200 mg PO Q4H PRN PRN Reason: Cough Hydralazine HCl (Apresoline) 10 mg SLOW IVP Q4H PRN PRN Reason: SBP > 180 and HR < 70 Dextrose/Water (D5w) 1,000 mls @ 0 mls/hr IV .Q0M PRN PRN Reason: Hypoglycemia Insulin Human Lispro (Humalog) 0 units SC .MODERATE SLIDING SC PRN PRN Reason: Moderate Correctional Scale Last Admin: 08/21/18 05:43 Dose: 2 unit Insulin Human Lispro (Humalog) 0 units SC .BEDTIME SLIDING SC PRN PRN Reason: Bedtime Correctional Scale Last Admin: 08/20/18 21:25 Dose: 4 unit Insulin Human NPH (Humulin N) [facility] [facility] Admin: 08/20/18 11:24 Dose: 30 unit Isosorbide Mononitrate (Imdur) 60 mg PO DAILY [facility] Last Admin: 08/20/18 09:57 Dose: 60 mg Labetalol HCl (Normodyne) 20 mg SLOW IVP Q4H PRN PRN Reason: SBP > 180 and HR >/= 70 Loperamide HCl (Imodium) 2 mg PO PRN PRN PRN Reason: Diarrhea/Loose Stools Loratadine (Claritin) 10 mg PO DAILYPRN PRN PRN Reason: Sinus Symptoms Mineral Oil/White Petrolatum (Eucerin Cream) 0 gm TOP BIDPRN PRN PRN Reason: Dry Skin Miscellaneous Medication (Pharmacy To Dose) 1 each PO DAILYPRN PRN PRN Reason: LABS Nitroglycerin (Nitrostat) 0.4 mg SL Q5MIN PRN PRN Reason: Chest Pain Ondansetron HCl (Zofran Odt) 4 mg PO Q6H PRN PRN Reason: Nausea/Vomiting Ondansetron HCl (Zofran) 4 mg IVP Q6H PRN PRN Reason: Nausea/Vomiting Senna/Docusate Sodium (Senokot S) 2 tab PO BID PRN PRN Reason: Constipation Sodium Chloride ([place] Nasal [place] 0.65%) 0 ml EA NARE QIDPRN PRN PRN Reason: Nasal Congestion Sodium Chloride (Flush - Normal Saline) 10 ml IVF Q12HR [facility] Last Admin: 08/20/18 20:12 Dose: 10 ml Sodium Chloride (Flush - Normal Saline) 10 ml IVF PRN PRN PRN Reason: Saline Flush Throat Lozenges (Cepastat Lozenges) 1 aditya PO Q2H PRN PRN Reason: Sore Throat Warfarin Sodium (Coumadin) 7.5 mg PO Mo [facility] Warfarin Sodium (Coumadin) 10 mg PO [facility] Last Admin: 08/20/18 17:40 Dose: 10 mg Warfarin Sodium (Coumadin) 10 mg PO We [facility] Warfarin Sodium (Coumadin) 5 mg PO Fr [facility] Zolpidem Tartrate (Ambien) 5 mg PO HSPRN PRN PRN Reason: Insomnia
[2018-08-21] MEDS: Furosemide 40 MG TAB PO SCH (09:49)
[2018-08-21] MEDS: Famotidine 20 MG TAB PO SCH ×2 (09:50→20:26)
[2018-08-21] MEDS: Aspirin 325 mg Enteric Coated Tablet PO SCH (09:52)
[2018-08-21] MEDS: Enoxaparin Sodium 60 MG/0.6 ML SYRINGE SC SCH ×2 (09:52→20:26)
[2018-08-21] MEDS: Acetaminophen 325 MG TAB PO PRN (10:10)
[2018-08-21] MEDS: NPH, Human Insulin Isophane 300 UNIT/3 ML VIAL SC SCH (10:10)
--- NOTE | 2018-08-21 11:27 | PRG ---
DATE OF SERVICE: 08/21/2018 CHIEF COMPLAINT: Left occipital CVA. INTERVAL HISTORY: The patient is doing slightly better. He still complains of vision difficulties and numbness and weakness on the right side. He has been seen by mill controller yesterday, and I appreciate recommendations. His echocardiogram showed mechanical prosthetic mitral valve, and no vegetations were found. LABORATORY WORKUP: White count 4.9, hemoglobin 14, hematocrit 42.5, platelets 161. PT 13.8, INR 1.1 today. Chemistry; sodium 134, potassium 4.3, chloride 101, bicarb 25, BUN 14, creatinine 0.97, glucose 160. OBJECTIVE: VITAL SIGNS: Blood pressure 169/89, temperature 97.5, pulse 61, respiratory rate 18. GENERAL APPEARANCE: Well-built, well-nourished man, who is still in shackles since he is a long-term inmate. NEUROLOGIC: On cranial nerve examination, he has persistent right homonymous hemianopsia. Tongue, midline. Motor examination, he has mild weakness on the right side at 4/5 in both upper and lower extremities. Sensory, he has decreased sensation on the right side. IMPRESSION: The patient with left occipital and temporal infarct, which is causing right-sided weakness and homonymous hemianopsia. No confusion at this time. His workup is completed. 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 At this time, he will need anticoagulation. Appreciate Cardiology input. He is currently being bridged with Lovenox until his INR is therapeutic. TREATMENT RECOMMENDATIONS: Please make sure the INR is therapeutic, and his facility has instructions for his Coumadin dosage. He may benefit from short stay at rehab facility. Please have rehab physician evaluate him and call Neurology if you have any further questions. Job ID: [id number]
[2018-08-21] MEDS ORDERED: Warfarin Sodium 10 MG TAB PO SCH (17:00)
[2018-08-21] MEDS: carBAMazepine 200 MG TAB PO SCH (20:26)
[2018-08-21] MEDS: Loratadine 10 MG TAB PO PRN (20:26)
[2018-08-22 06:05] LABS: #Basophils 0.1 thou/uL (0.0-0.2); #Eosinphils 0.3 thou/uL (0.0-0.7); #Lymphocytes 1.5 thou/uL (1.20-3.40); #Monocytes 0.4 thou/uL (0.11-0.59); #Neutrophils 2.1 thou/uL (1.40-6.50); %Basophils 1.6 % (0.0-1.0); %Eosinophils 6.8 % (0.0-10.0); %Lymphocytes 33.5 % (21.0-51.0); Hemoglobin 13.8 g/dL (14.0-18.0); Mean Corpuscular Hemoglobin 29.7 pg (27.0-31.0); Mean Corpuscular Volume 95.7 fL (78.0-98.0); Mean Platelet Volume 8.3 fL (7.4-10.4); Platelet Count 181 thou/uL (130-400); RBC Distribution Width 12.5 % (11.5-14.5); Red Blood Cell (RBC) Count 4.65 mill/uL (4.70-6.10); White Blood Cell (WBC) Count 4.4 thou/uL (4.8-10.8)
[2018-08-22 06:11] LABS: INR-International Normal Ratio 1.1; Prothrombin Time 14.4 SEC (12.0-14.7)
[2018-08-22] MEDS: HumaLOG 300 UNITS/3 ML VIAL SC PRN ×4 (06:11→21:13)
[2018-08-22 06:26] LABS: Anion Gap 13 mmol/L (10-20); BUN (Urea Nitrogen) 18 mg/dL (8.4-25.7); Calc. Creatinine Clearance 176 mL/min (70-130); Calcium 9.1 mg/dL (7.8-10.44); Carbon Dioxide 26 mmol/L (22-29); Chloride 102 mmol/L (98-107); Estimated GFR-MDRD 74; Glucose 150 mg/dL (70-105); Potassium 3.8 mmol/L (3.5-5.1); Sodium 137 mmol/L (136-145)
[2018-08-22] MEDS: NPH, Human Insulin Isophane 300 UNIT/3 ML VIAL SC SCH (09:35)
[2018-08-22] MEDS: Enoxaparin Sodium 60 MG/0.6 ML SYRINGE SC SCH ×2 (09:35→21:14)
[2018-08-22] MEDS: Famotidine 20 MG TAB PO SCH ×2 (09:36→21:12)
[2018-08-22] MEDS: Aspirin 325 mg Enteric Coated Tablet PO SCH (09:36)
[2018-08-22] MEDS: Furosemide 40 MG TAB PO SCH (09:36)
[2018-08-22] MEDS: Loratadine 10 MG TAB PO PRN (09:39)
--- NOTE | 2018-08-22 11:06 | PDOC.PN ---
- Subjective Encounter Start Date: 08/22/18 Encounter Start Time: 08:00 Patient seen and examined. No new complaints. No overnight events - Objective Resuscitation Status - Order Detail: 08/19/18 07:06 Resuscitation Status Routine Resuscitation Status: FULL: Full Resuscitation MAR Reviewed: Yes Vital Signs & Weight: Vital Signs (12 hours) Temp Pulse Resp BP Pulse Ox 08/22/18 07:42 97.8 F 76 18 137/83 94 L 08/22/18 04:00 98 F 60 16 143/70 H 95 08/22/18 00:00 97.9 F 61 16 166/87 H 94 L Weight Weight 328 lb 11.347 oz I&O: 08/21/18 08/22/18 08/23/18 06:59 06:59 06:59 Intake Total 1060 Output Total 925 Balance 135 Result Diagrams: 08/22/18 05:48 08/22/18 05:48 Additional Labs: Accuchecks 08/22/18 08/22/18 08/21/18 10:39 05:33 20:37 POC Glucose 193 H 211 H 190 H 08/21/18 08/21/18 16:35 10:55 POC Glucose 172 H 236 H EKG Reviewed by me: Yes Phys Exam - Physical Examination Constitutional: NAD HEENT: PERRLA, moist MMs, sclera anicteric Neck: no JVD, supple Respiratory: no wheezing, no rales, no rhonchi Cardiovascular: RRR, no significant murmur, no rub mechanical heart sound, prosthetic click Gastrointestinal: soft, non-tender, no distention, positive bowel sounds Musculoskeletal: no edema, pulses present Neurological: non-focal, normal sensation Lymphatic: no nodes Psychiatric: normal affect, A&O x 3 Skin: no rash, normal turgor Dx/Plan (1) 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 Code(s): I63.532 - CEREB INFRC D/T UNSP OCCLS OR STENOS OF LEFT POST CEREB ART Status: Acute (2) H/O aortic valve replacement Code(s): Z95.2 - PRESENCE OF PROSTHETIC HEART VALVE Status: Chronic (3) Demand ischemia Code(s): I24.8 - OTHER FORMS OF ACUTE ISCHEMIC HEART DISEASE Status: Acute (4) Chronic anticoagulation Code(s): Z79.01 - INTERIOR DESIGN ASSISTANT (CURRENT) USE OF ANTICOAGULANTS Status: Chronic (5) Dyslipidemia Code(s): E78.5 - HYPERLIPIDEMIA, UNSPECIFIED Status: Chronic (6) Hypertension Code(s): I10 - ESSENTIAL (PRIMARY) HYPERTENSION Status: Chronic (7) Morbid obesity with BMI of 40.0-44.9, adult Code(s): E66.01 - MORBID (SEVERE) OBESITY DUE TO EXCESS CALORIES; Z68.41 - BODY MASS INDEX (BMI) 40.0-44.9, ADULT Status: Chronic (8) PAF (paroxysmal atrial fibrillation) Code(s): I48.0 - PAROXYSMAL ATRIAL FIBRILLATION Status: Chronic (9) Subtherapeutic international normalized ratio (INR) Code(s): R79.1 - ABNORMAL COAGULATION PROFILE Status: Acute - Plan cont current plan of care, PT/OT, 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 Review of Systems - Review of Systems ENT: negative: Ear Pain, Ear Discharge, Nose Pain, Nose Discharge, Nose Congestion, Mouth Pain, Mouth Swelling, Throat Pain, Throat Swelling, Other Respiratory: negative: Cough, Dry, Shortness of Breath, Hemoptysis, SOB with Excertion, Pleuritic Pain, Sputum, Wheezing Cardiovascular: negative: chest pain, palpitations, orthopnea, paroxysmal nocturnal dyspnea, edema, light headedness, other Gastrointestinal: negative: Nausea, Vomiting, Abdominal Pain, Diarrhea, Constipation, Melena, Hematochezia, Other Genitourinary: negative: Dysuria, Frequency, Incontinence, Hematuria, Retention , Other Musculoskeletal: negative: Neck Pain, Shoulder Pain, Arm Pain, Back Pain, Hand Pain, Leg Pain, Foot Pain, Other - Medications/Allergies Allergies/Adverse Reactions: Allergies Allergy/AdvReac Type Severity Reaction Status Date / Time atorvastatin [From Lipitor] Allergy Verified 08/19/18 04:41 cyclobenzaprine Allergy Verified 08/19/18 04:41 [From Flexeril] hydrocodone Allergy Verified 08/19/18 04:41 lisinopril Allergy Verified 08/19/18 04:41 Medications: Current Medications Acetaminophen (Tylenol) 650 mg PO Q4H PRN PRN Reason: Headache/Fever/Mild Pain (1-3) Last Admin: 08/21/18 10:10 Dose: 650 mg Artificial Tears (Tears Naturale) 2 drop EA EYE PRN PRN PRN Reason: Dry Eyes Aspirin (Ecotrin) 325 mg PO DAILY [facility] Last Admin: 08/22/18 09:36 Dose: 325 mg Bisacodyl (Dulcolax) 10 mg PO DAILYPRN PRN PRN Reason: Constipation Bisacodyl (Dulcolax) 10 mg [place] DAILYPRN PRN PRN Reason: Constipation Calcium Carbonate (Tums) 1,000 mg PO Q4H PRN PRN Reason: Heartburn or Indigestion Carbamazepine (Tegretol) 200 mg PO HS [facility] Last Admin: 08/21/18 20:26 Dose: 200 mg Dextrose/Water (Dextrose 50%) 25 gm SLOW IVP PRN PRN PRN Reason: Hypoglycemia Diltiazem HCl (Cardizem Cd) 180 mg PO BID [facility] Last Admin: 08/22/18 09:35 Dose: 180 mg Enoxaparin Sodium (Lovenox) 60 mg SC 0900,2100 [facility] Last Admin: 08/22/18 09:35 Dose: 60 mg Famotidine (Pepcid) 20 mg PO BID [facility] Last Admin: 08/22/18 09:36 Dose: 20 mg Furosemide (Lasix) 40 mg PO DAILY [facility] Last Admin: 08/22/18 09:36 Dose: 40 mg Glucagon (Glucagon) 1 mg IM PRN PRN PRN Reason: Hypoglycemia Guaifenesin (Robitussin Sf) 200 mg PO Q4H PRN PRN Reason: Cough Hydralazine HCl (Apresoline) 10 mg SLOW IVP Q4H PRN PRN Reason: SBP > 180 and HR < 70 Dextrose/Water (D5w) 1,000 mls @ 0 mls/hr IV .Q0M PRN PRN Reason: Hypoglycemia Insulin Human Lispro (Humalog) 0 units SC .MODERATE SLIDING SC PRN PRN Reason: Moderate Correctional Scale Last Admin: 08/22/18 10:58 Dose: 2 unit Insulin Human Lispro (Humalog) 0 units SC .BEDTIME SLIDING SC PRN PRN Reason: Bedtime Correctional Scale Last Admin: 08/20/18 21:25 Dose: 4 unit Insulin Human NPH (Humulin N) 30 unit SC QAM [facility] Last Admin: 08/22/18 09:35 Dose: 30 unit Isosorbide Mononitrate (Imdur) 60 mg PO DAILY [facility] Last Admin: 08/22/18 09:36 Dose: 60 mg Labetalol HCl (Normodyne) 20 mg SLOW IVP Q4H PRN PRN Reason: SBP > 180 and HR >/= 70 Loperamide HCl (Imodium) 2 mg PO PRN PRN PRN Reason: Diarrhea/Loose Stools Loratadine (Claritin) 10 mg PO DAILYPRN PRN PRN Reason: Sinus Symptoms Last Admin: 08/22/18 09:39 Dose: 10 mg Mineral Oil/White Petrolatum (Eucerin Cream) 0 gm TOP BIDPRN PRN PRN Reason: Dry Skin Miscellaneous Medication (Pharmacy To Dose) 1 each PO DAILYPRN PRN PRN Reason: LABS Nitroglycerin (Nitrostat) 0.4 mg SL Q5MIN PRN PRN Reason: Chest Pain Ondansetron HCl (Zofran Odt) 4 mg PO Q6H PRN PRN Reason: Nausea/Vomiting Ondansetron HCl (Zofran) 4 mg IVP Q6H PRN PRN Reason: Nausea/Vomiting Senna/Docusate Sodium (Senokot S) 2 tab PO BID PRN PRN Reason: Constipation Sodium Chloride ([place] Nasal [place] 0.65%) 0 ml EA NARE QIDPRN PRN PRN Reason: Nasal Congestion Sodium Chloride (Flush - Normal Saline) 10 ml IVF Q12HR [facility] Last Admin: 08/22/18 09:36 Dose: 10 ml Sodium Chloride (Flush - Normal Saline) 10 ml IVF PRN PRN PRN Reason: Saline Flush Last Admin: 08/21/18 09:57 Dose: 10 ml Throat Lozenges (Cepastat Lozenges) 1 aditya PO Q2H PRN PRN Reason: Sore Throat Warfarin Sodium (Coumadin) 10 mg PO 1700 [facility] Zolpidem Tartrate (Ambien) 5 mg PO HSPRN PRN PRN Reason: Insomnia
[2018-08-22] MEDS ORDERED: Warfarin Sodium 2.5 MG TAB PO SCH (17:00)
[2018-08-22] MEDS ORDERED: Warfarin Sodium 5 MG TAB PO SCH (17:00)
[2018-08-22] MEDS: Warfarin Sodium 7.5 MG TAB PO SCH (17:30)
[2018-08-22] MEDS: carBAMazepine 200 MG TAB PO SCH (21:13)
[2018-08-23] MEDS: HumaLOG 300 UNITS/3 ML VIAL SC PRN ×4 (05:35→20:41)
[2018-08-23 05:48] LABS: INR-International Normal Ratio 1.1; Prothrombin Time 13.9 SEC (12.0-14.7)
[2018-08-23] MEDS: Enoxaparin Sodium 60 MG/0.6 ML SYRINGE SC SCH ×2 (09:43→20:40)
[2018-08-23] MEDS: Famotidine 20 MG TAB PO SCH ×2 (09:44→20:41)
[2018-08-23] MEDS: Aspirin 325 mg Enteric Coated Tablet PO SCH (09:44)
[2018-08-23] MEDS: Furosemide 40 MG TAB PO SCH (09:44)
[2018-08-23] MEDS: NPH, Human Insulin Isophane 300 UNIT/3 ML VIAL SC SCH (10:02)
--- NOTE | 2018-08-23 10:56 | PDOC.PN ---
- Subjective Encounter Start Date: 08/23/18 Encounter Start Time: 10:00 Patient seen and examined. No new complaints. No overnight events - Objective Resuscitation Status - Order Detail: 08/19/18 07:06 Resuscitation Status Routine Resuscitation Status: FULL: Full Resuscitation MAR Reviewed: Yes Vital Signs & Weight: Vital Signs (12 hours) Temp Pulse Resp BP Pulse Ox 08/23/18 07:47 97.7 F 59 L 20 145/71 H 95 08/23/18 04:00 97.5 F L 58 L 19 148/87 H 94 L 08/23/18 00:00 98.4 F 61 18 147/70 H 92 L Weight Weight 324 lb 9.6 oz I&O: 08/22/18 08/23/18 08/24/18 06:59 06:59 06:59 Intake Total 1060 1560 Output Total 925 Balance 135 1560 Result Diagrams: 08/22/18 05:48 08/22/18 05:48 Additional Labs: Accuchecks 08/23/18 08/23/18 08/22/18 10:43 05:35 19:45 POC Glucose 201 H 159 H 203 H 08/22/18 17:24 POC Glucose 171 H EKG Reviewed by me: Yes Phys Exam - Physical Examination Constitutional: NAD HEENT: PERRLA, moist MMs, sclera anicteric Neck: no JVD, supple Respiratory: no wheezing, no rales, no rhonchi Cardiovascular: RRR, no significant murmur, no rub Gastrointestinal: soft, non-tender, no distention, positive bowel sounds obesity+ Musculoskeletal: no edema, pulses present parasthesia on right side Lymphatic: no nodes Psychiatric: normal affect, A&O x 3 Skin: no rash, normal turgor Dx/Plan (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9, adult Code(s): E66.01 - MORBID (SEVERE) OBESITY DUE TO EXCESS CALORIES; Z68.41 - BODY MASS INDEX (BMI) 40.0-44.9, ADULT Status: Chronic (8) PAF (paroxysmal atrial fibrillation) Code(s): I48.0 - PAROXYSMAL ATRIAL FIBRILLATION Status: Chronic (9) Subtherapeutic international normalized ratio (INR) Code(s): R79.1 - ABNORMAL COAGULATION PROFILE Status: Acute - 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 Review of Systems - Review of Systems ENT: negative: Ear Pain, Ear Discharge, Nose Pain, Nose Discharge, Nose Congestion, Mouth Pain, Mouth Swelling, Throat Pain, Throat Swelling, Other Respiratory: negative: Cough, Dry, Shortness of Breath, Hemoptysis, SOB with Excertion, Pleuritic Pain, Sputum, Wheezing Cardiovascular: negative: chest pain, palpitations, orthopnea, paroxysmal nocturnal dyspnea, edema, light headedness, other Gastrointestinal: negative: Nausea, Vomiting, Abdominal Pain, Diarrhea, Constipation, Melena, Hematochezia, Other Genitourinary: negative: Dysuria, Frequency, Incontinence, Hematuria, Retention , Other Musculoskeletal: negative: Neck Pain, Shoulder Pain, Arm Pain, Back Pain, Hand Pain, Leg Pain, Foot Pain, Other Skin: negative: Rash, Lesions, Andreas, Bruising, Other - Medications/Allergies Allergies/Adverse Reactions: Allergies Allergy/AdvReac Type Severity Reaction Status Date / Time atorvastatin [From Lipitor] Allergy Verified 08/19/18 04:41 cyclobenzaprine Allergy Verified 08/19/18 04:41 [From Flexeril] hydrocodone Allergy Verified 08/19/18 04:41 lisinopril Allergy Verified 08/19/18 04:41 Medications: Current Medications Acetaminophen (Tylenol) 650 mg PO Q4H PRN PRN Reason: Headache/Fever/Mild Pain (1-3) Last Admin: 08/21/18 10:10 Dose: 650 mg Artificial Tears (Tears Naturale) 2 drop EA EYE PRN PRN PRN Reason: Dry Eyes Aspirin (Ecotrin) 325 mg PO DAILY [facility] Last Admin: 08/23/18 09:44 Dose: 325 mg Bisacodyl (Dulcolax) 10 mg PO DAILYPRN PRN PRN Reason: Constipation Bisacodyl (Dulcolax) 10 mg [place] DAILYPRN PRN PRN Reason: Constipation Calcium Carbonate (Tums) 1,000 mg PO Q4H PRN PRN Reason: Heartburn or Indigestion Carbamazepine (Tegretol) 200 mg PO HS [facility] Last Admin: 08/22/18 21:13 Dose: 200 mg Dextrose/Water (Dextrose 50%) 25 gm SLOW IVP PRN PRN PRN Reason: Hypoglycemia Diltiazem HCl (Cardizem Cd) 180 mg PO BID [facility] Last Admin: 08/23/18 09:43 Dose: 180 mg Enoxaparin Sodium (Lovenox) 60 mg SC 0900,2100 [facility] Last Admin: 08/23/18 09:43 Dose: 60 mg Famotidine (Pepcid) 20 mg PO BID [facility] Last Admin: 08/23/18 09:44 Dose: 20 mg Furosemide (Lasix) 40 mg PO DAILY [facility] Last Admin: 08/23/18 09:44 Dose: 40 mg Glucagon (Glucagon) 1 mg IM PRN PRN PRN Reason: Hypoglycemia Guaifenesin (Robitussin Sf) 200 mg PO Q4H PRN PRN Reason: Cough Hydralazine HCl (Apresoline) 10 mg SLOW IVP Q4H PRN PRN Reason: SBP > 180 and HR < 70 Dextrose/Water (D5w) 1,000 mls @ 0 mls/hr IV .Q0M PRN PRN Reason: Hypoglycemia Insulin Human Lispro (Humalog) 0 units SC .MODERATE SLIDING SC PRN PRN Reason: Moderate Correctional Scale Last Admin: 08/23/18 05:35 Dose: 2 unit Insulin Human Lispro (Humalog) 0 units SC .BEDTIME SLIDING SC PRN PRN Reason: Bedtime Correctional Scale Last Admin: 08/22/18 21:13 Dose: 2 unit Insulin Human NPH (Humulin N) [facility] [place] [facility] [place] Last Admin: 08/23/18 10:02 Dose: 30 unit Isosorbide Mononitrate (Imdur) 60 mg PO DAILY [facility] Last Admin: 08/23/18 09:44 Dose: 60 mg Labetalol HCl (Normodyne) 20 mg SLOW IVP Q4H PRN PRN Reason: SBP > 180 and HR >/= 70 Loperamide HCl (Imodium) 2 mg PO PRN PRN PRN Reason: Diarrhea/Loose Stools Loratadine (Claritin) 10 mg PO DAILYPRN PRN PRN Reason: Sinus Symptoms Last Admin: 08/22/18 09:39 Dose: 10 mg Mineral Oil/White Petrolatum (Eucerin Cream) 0 gm TOP BIDPRN PRN PRN Reason: Dry Skin Miscellaneous Medication (Pharmacy To Dose) 1 each PO DAILYPRN PRN PRN Reason: LABS Nitroglycerin (Nitrostat) 0.4 mg SL Q5MIN PRN PRN Reason: Chest Pain Ondansetron HCl (Zofran Odt) 4 mg PO Q6H PRN PRN Reason: Nausea/Vomiting Ondansetron HCl (Zofran) 4 mg IVP Q6H PRN PRN Reason: Nausea/Vomiting Senna/Docusate Sodium (Senokot S) 2 tab PO BID PRN PRN Reason: Constipation Sodium Chloride ([place] Nasal [place] 0.65%) 0 ml EA NARE QIDPRN PRN PRN Reason: Nasal Congestion Sodium Chloride (Flush - Normal Saline) 10 ml IVF Q12HR [facility] Last Admin: 08/23/18 09:44 Dose: 10 ml Sodium Chloride (Flush - Normal Saline) 10 ml IVF PRN PRN PRN Reason: Saline Flush Last Admin: 08/21/18 09:57 Dose: 10 ml Throat Lozenges (Cepastat Lozenges) 1 aditya PO Q2H PRN PRN Reason: Sore Throat Warfarin Sodium (Coumadin) 15 mg PO 1700 [facility] Last Admin: 08/22/18 17:30 Dose: 15 mg Zolpidem Tartrate (Ambien) 5 mg PO HSPRN PRN PRN Reason: Insomnia
[2018-08-23] MEDS: Warfarin Sodium 7.5 MG TAB PO SCH (17:14)
[2018-08-23] MEDS: carBAMazepine 200 MG TAB PO SCH (20:41)
[2018-08-24 05:27] LABS: INR-International Normal Ratio 1.1; Prothrombin Time 13.8 SEC (12.0-14.7)
[2018-08-24] MEDS: Furosemide 40 MG TAB PO SCH (08:42)
[2018-08-24] MEDS: Famotidine 20 MG TAB PO SCH ×2 (08:42→21:39)
[2018-08-24] MEDS: Aspirin 325 mg Enteric Coated Tablet PO SCH (08:42)
[2018-08-24] MEDS: Enoxaparin Sodium 60 MG/0.6 ML SYRINGE SC SCH ×2 (08:43→21:39)
[2018-08-24] MEDS: NPH, Human Insulin Isophane 300 UNIT/3 ML VIAL SC SCH (08:44)
--- NOTE | 2018-08-24 10:54 | PDOC.PN ---
- Subjective Encounter Start Date: 08/24/18 Encounter Start Time: 07:10 pt's INR still not moving, pt has parasthesia on right side - Objective Resuscitation Status - Order Detail: 08/19/18 07:06 Resuscitation Status Routine Resuscitation Status: FULL: Full Resuscitation MAR Reviewed: Yes Vital Signs & Weight: Vital Signs (12 hours) Temp Pulse Resp BP Pulse Ox 08/24/18 08:00 97.6 F 56 L 16 157/89 H 94 L 08/24/18 04:00 97.4 F L 58 L 19 110/64 95 08/24/18 00:00 97.5 F L 66 19 145/79 H 97 Weight Weight 324 lb 9.6 oz I&O: 08/23/18 08/24/18 08/25/18 06:59 06:59 06:59 Intake Total 1560 550 Output Total 650 Balance 1560 -100 Result Diagrams: 08/22/18 05:48 08/22/18 05:48 Additional Labs: Accuchecks 08/24/18 08/23/18 08/23/18 05:57 19:32 16:40 POC Glucose 158 H 259 H 192 H EKG Reviewed by me: Yes (nsr) Phys Exam - Physical Examination Constitutional: NAD HEENT: PERRLA, moist MMs, sclera anicteric Neck: no JVD, supple Respiratory: no wheezing, no rales, no rhonchi Cardiovascular: RRR, no significant murmur, no rub prosthetic click+ Gastrointestinal: soft, non-tender, no distention, positive bowel sounds Musculoskeletal: no edema, pulses present Neurological: moves all 4 limbs Lymphatic: no nodes Psychiatric: normal affect, A&O x 3 Skin: no rash, normal turgor Dx/Plan (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 Code(s): I63.532 - CEREB INFRC D/T UNSP OCCLS OR STENOS OF LEFT POST CEREB ART Status: Acute (2) H/O aortic valve replacement Code(s): Z95.2 - PRESENCE OF PROSTHETIC HEART VALVE Status: Chronic (3) Demand ischemia Code(s): I24.8 - OTHER FORMS OF ACUTE ISCHEMIC HEART DISEASE Status: Acute (4) Chronic anticoagulation Code(s): Z79.01 - SNF (CURRENT) USE OF ANTICOAGULANTS Status: Chronic (5) Dyslipidemia Code(s): E78.5 - HYPERLIPIDEMIA, UNSPECIFIED Status: Chronic (6) Hypertension Code(s): I10 - ESSENTIAL (PRIMARY) HYPERTENSION Status: Chronic (7) Morbid obesity with BMI of 40.0-44.9, adult Code(s): E66.01 - MORBID (SEVERE) OBESITY DUE TO EXCESS CALORIES; Z68.41 - BODY MASS INDEX (BMI) 40.0-44.9, ADULT Status: Chronic (8) PAF (paroxysmal atrial fibrillation) Code(s): I48.0 - PAROXYSMAL ATRIAL FIBRILLATION Status: Chronic (9) Subtherapeutic international normalized ratio (INR) Code(s): R79.1 - ABNORMAL COAGULATION PROFILE Status: Acute - Plan 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 Review of Systems - Review of Systems ENT: negative: Ear Pain, Ear Discharge, Nose Pain, Nose Discharge, Nose Congestion, Mouth Pain, Mouth Swelling, Throat Pain, Throat Swelling, Other Respiratory: negative: Cough, Dry, Shortness of Breath, Hemoptysis, SOB with Excertion, Pleuritic Pain, Sputum, Wheezing Cardiovascular: negative: chest pain, palpitations, orthopnea, paroxysmal nocturnal dyspnea, edema, light headedness, other Gastrointestinal: negative: Nausea, Vomiting, Abdominal Pain, Diarrhea, Constipation, Melena, Hematochezia, Other Genitourinary: negative: Dysuria, Frequency, Incontinence, Hematuria, Retention , Other Musculoskeletal: negative: Neck Pain, Shoulder Pain, Arm Pain, Back Pain, Hand Pain, Leg Pain, Foot Pain, Other Skin: negative: Rash, Lesions, Andreas, Bruising, Other Neurological: Numbness. negative: Weakness, Incoordination, Change in Speech, Confusion, Seizures, Other - Medications/Allergies Allergies/Adverse Reactions: Allergies Allergy/AdvReac Type Severity Reaction Status Date / Time atorvastatin [From Lipitor] Allergy Verified 08/19/18 04:41 cyclobenzaprine Allergy Verified 08/19/18 04:41 [From Flexeril] hydrocodone Allergy Verified 08/19/18 04:41 lisinopril Allergy Verified 08/19/18 04:41 Medications: Current Medications Acetaminophen (Tylenol) 650 mg PO Q4H PRN PRN Reason: Headache/Fever/Mild Pain (1-3) Last Admin: 08/21/18 10:10 Dose: 650 mg Artificial Tears (Tears Naturale) 2 drop EA EYE PRN PRN PRN Reason: Dry Eyes Aspirin (Ecotrin) 325 mg PO DAILY [facility] Last Admin: 08/24/18 08:42 Dose: 325 mg Bisacodyl (Dulcolax) 10 mg PO DAILYPRN PRN PRN Reason: Constipation Bisacodyl (Dulcolax) 10 mg [place] DAILYPRN PRN PRN Reason: Constipation Calcium Carbonate (Tums) 1,000 mg PO Q4H PRN PRN Reason: Heartburn or Indigestion Carbamazepine (Tegretol) 200 mg PO HS [facility] Last Admin: 08/23/18 20:41 Dose: 200 mg Dextrose/Water (Dextrose 50%) 25 gm SLOW IVP PRN PRN PRN Reason: Hypoglycemia Diltiazem HCl (Cardizem Cd) 180 mg PO BID [facility] Last Admin: 08/24/18 08:42 Dose: 180 mg Enoxaparin Sodium (Lovenox) 60 mg SC 0900,2100 [facility] Last Admin: 08/24/18 08:43 Dose: 60 mg Famotidine (Pepcid) 20 mg PO BID [facility] Last Admin: 08/24/18 08:42 Dose: 20 mg Furosemide (Lasix) 40 mg PO DAILY [facility] Last Admin: 08/24/18 08:42 Dose: 40 mg Glucagon (Glucagon) 1 mg IM PRN PRN PRN Reason: Hypoglycemia Guaifenesin (Robitussin Sf) 200 mg PO Q4H PRN PRN Reason: Cough Hydralazine HCl (Apresoline) 10 mg SLOW IVP Q4H PRN PRN Reason: SBP > 180 and HR < 70 Dextrose/Water (D5w) 1,000 mls @ 0 mls/hr IV .Q0M PRN PRN Reason: Hypoglycemia Insulin Human Lispro (Humalog) 0 units SC .MODERATE SLIDING SC PRN PRN Reason: Moderate Correctional Scale Last Admin: 08/23/18 17:14 Dose: 2 unit Insulin Human Lispro (Humalog) 0 units SC .BEDTIME SLIDING SC PRN PRN Reason: Bedtime Correctional Scale Last Admin: 08/23/18 20:41 Dose: 3 unit Insulin Human NPH (Humulin N) [facility] [place] Last Admin: 08/24/18 08:44 Dose: 30 unit Isosorbide Mononitrate (Imdur) 60 mg PO DAILY [facility] Last Admin: 08/24/18 08:42 Dose: 60 mg Labetalol HCl (Normodyne) 20 mg SLOW IVP Q4H PRN PRN Reason: SBP > 180 and HR >/= 70 Loperamide HCl (Imodium) 2 mg PO PRN PRN PRN Reason: Diarrhea/Loose Stools Loratadine (Claritin) 10 mg PO DAILYPRN PRN PRN Reason: Sinus Symptoms Last Admin: 08/22/18 09:39 Dose: 10 mg Mineral Oil/White Petrolatum (Eucerin Cream) 0 gm TOP BIDPRN PRN PRN Reason: Dry Skin Miscellaneous Medication (Pharmacy To Dose) 1 each PO DAILYPRN PRN PRN Reason: LABS Nitroglycerin (Nitrostat) 0.4 mg SL Q5MIN PRN PRN Reason: Chest Pain Ondansetron HCl (Zofran Odt) 4 mg PO Q6H PRN PRN Reason: Nausea/Vomiting Ondansetron HCl (Zofran) 4 mg IVP Q6H PRN PRN Reason: Nausea/Vomiting Senna/Docusate Sodium (Senokot S) 2 tab PO BID PRN PRN Reason: Constipation Sodium Chloride ([place] Nasal [place] 0.65%) 0 ml EA NARE QIDPRN PRN PRN Reason: Nasal Congestion Sodium Chloride (Flush - Normal Saline) 10 ml IVF Q12HR [facility] Last Admin: 08/24/18 10:07 Dose: 10 ml Sodium Chloride (Flush - Normal Saline) 10 ml IVF PRN PRN PRN Reason: Saline Flush Last Admin: 08/21/18 09:57 Dose: 10 ml Throat Lozenges (Cepastat Lozenges) 1 aditya PO Q2H PRN PRN Reason: Sore Throat Warfarin Sodium (Coumadin) 20 mg PO 1700 [facility] Zolpidem Tartrate (Ambien) 5 mg PO HSPRN PRN PRN Reason: Insomnia
[2018-08-24] MEDS: HumaLOG 300 UNITS/3 ML VIAL SC PRN ×3 (12:51→21:39)
[2018-08-24] MEDS: Acetaminophen 325 MG TAB PO PRN (12:54)
[2018-08-24] MEDS ORDERED: Warfarin Sodium 10 MG TAB PO SCH ×2 (17:00)
[2018-08-24 20:58] VITALS: BP 134/92; TEMP 98.1
[2018-08-24] MEDS: carBAMazepine 200 MG TAB PO SCH (21:39)
--- NOTE | 2018-08-25 07:52 | DIS ---
DATE OF ADMISSION: 08/19/2018 DATE OF DISCHARGE: 08/24/2018 PRIMARY CARE PHYSICIAN: [facility] Call admission. DISCHARGE DISPOSITION: [facility]. PRIMARY DISCHARGE DIAGNOSES: 1. Acute left posterior cerebral artery stroke. 2. Demand ischemia. 3. Subtherapeutic INR. SECONDARY DISCHARGE DIAGNOSES: Paroxysmal atrial fibrillation, morbid obesity with BMI of 42, hypertension, history of mechanical prosthetic aortic wall, dyslipidemia, chronic anticoagulation, and diabetes type 2. PRIMARY PROCEDURE/OPERATION: None. RADIOLOGICAL INVESTIGATION: CT brain did not show any acute process, CT [facility] angiography was negative for any acute blockage. Chest x-ray normal. MRI brain confirmed left ARMATURE BALANCER, acute CVA. Ultrasonography was negative for any DVT. Echocardiography showed prosthetic while functioning properly. SIGNIFICANT LABORATORY DATA: WBC 4.4, hemoglobin 13.8, and platelet 181. INR 1.1. Sodium 137 and creatinine 1.05. DISCHARGE MEDICATIONS: 1. Lovenox 1 mg/kg subcu twice daily will be continued until INR therapeutic. 2. Warfarin as directed to keep goal of INR 2.5 to 3.5. 3. Omeprazole 20 mg daily. 4. Imdur 60 mg daily. 5. Novolin 30 units subcu in the morning. 6. Lasix 40 mg daily. 7. Cardizem CD 180 mg b.i.d. 8. Tegretol 200 mg p.o. at bedtime. 9. Lipitor 40 mg p.o. at bedtime. 10. Aspirin 81 mg p.o. daily. CONTRAINDICATION: The patient is not on statin therapy, because the patient is allergic to statin therapy and that is why the patient is not given any statin therapy in view of stroke. CODE STATUS: Full code. INPATIENT CONSULTANTS: Neurology, Cardiology group was following while in hospital. TEST RESULTS PENDING ON DISCHARGE: None. ALLERGY: Lipitor, Flexeril, and lisinopril. DISCHARGE PLAN: Posthospital, the patient is discharged to [facility] for PT/OT. HOSPITAL COURSE: A 53-year-old male with above-mentioned medical problem, who was sent from [facility] for right-sided paresthesia. Please see my HPI for further details. The patient was at half-way and he was started having paresthesia on the right side. At the same time, he was having high blood pressure. His paresthesia was getting worse and that is why he was sent to ER and he was diagnosed with left ARMATURE BALANCER, CVA after MRI. Initial CT brain and CT [facility] [place] were negative. The patient was not a candidate for tPA because of late presentation. While in hospital, we found that he has low INR and that is why we started Lovenox and warfarin together. His INR was still not normal and that is why with help of lining caser, we discussed with the [facility] to arrange Lovenox and warfarin together until INR therapeutic. Neurology and Cardiology were following while in the hospital. The patient remained hemodynamically stable while in the hospital. The patient has bed available at [facility], where he will continue PT and OT or stroke team workup as well as the patient will continue with warfarin therapy. We recommended to increase warfarin to keep INR 2.5 to 3.5, and continue Lovenox. The patient is seen and examined at bedside today. Please see my progress note from today for further details. Job ID: [id number]
[2018-08-26] MEDS ORDERED: Warfarin Sodium 5 MG TAB PO SCH (17:00)
== END 2018-08-24 21:55 | DRG 65 ==
LOC: ERS 23:45 → ERHOLD 08-19 02:41 → 2SE 08-19 12:46
PROVIDERS: ADMIT Family Medicine; ATTEND Family Medicine
DX: I63.532 Cerebral infarction due to unspecified occlusion or stenosis of left posterior cerebral artery (principal); G81.91 Hemiplegia, unspecified affecting right dominant side; Z68.41 Body mass index [BMI] 40.0-44.9, adult; I24.8 Other forms of acute ischemic heart disease; I48.0 Paroxysmal atrial fibrillation; I25.10 Atherosclerotic heart disease of native coronary artery without angina pectoris; E11.9 Type 2 diabetes mellitus without complications; K21.9 Gastro-esophageal reflux disease without esophagitis; E66.01 Morbid (severe) obesity due to excess calories; Z79.01 Long term (current) use of anticoagulants; Z79.82 Long term (current) use of aspirin; Z79.891 Long term (current) use of opiate analgesic; Z79.899 Other long term (current) drug therapy; Z95.2 Presence of prosthetic heart valve; I10 Essential (primary) hypertension; H53.47 Heteronymous bilateral field defects; R79.1 Abnormal coagulation profile; Z79.4 Long term (current) use of insulin; Z95.1 Presence of aortocoronary bypass graft; Z88.5 Allergy status to narcotic agent; Z88.8 Allergy status to other drugs, medicaments and biological substances; E78.5 Hyperlipidemia, unspecified
CPT/HCPCS: 36415; 36416; 36556; 70450; 70496; 70498; 70551; 71045; 80048; 80053; 80061; 82553; 84484; 85025; 85610; 85730; 93005; 93306; 93970; J1650; J1815